=== PATIENT | female | born 1945 | race Caucasian/White ===

== ENCOUNTER 2018-12-28 17:18 | Emergency (ER) | payer MEDICARE, OTHER ==
[~2018-12-28] VITALS: Ht 152.4 cm; Wt 72.7 kg
[2018-12-28] MEDS ORDERED: FLUORESCEIN (FLUOR-I-STRIPS) 1 MG STRP ONE (17:24)
[2018-12-28] MEDS ORDERED: TETRACAINE 0.5% OPHTH SOLN 4 ML BTL (SINGLE DOSE ONLY) ONE (17:24)
[2018-12-28] MEDS ORDERED: TETANUS,DIPTH,PERTUSS P/F (BOOSTRIX) 0.5 ML VIAL IM ONE (17:45)
[2018-12-28] MEDS ORDERED: NS IV 1000 ML 1,000 ML IV SCH (17:45)
[2018-12-28] MEDS ORDERED: TETRACAINE 0.5% OPHTH SOLN 4 ML BTL (SINGLE DOSE ONLY) OU ONE (17:45)
[2018-12-28] MEDS ORDERED: FLUORESCEIN (FLUOR-I-STRIPS) 1 MG STRP OU ONE (17:45)
[2018-12-28] MEDS ORDERED: IBUPROFEN 800 MG (MOTRIN) TAB PO ONE (17:45)
[2018-12-28] MEDS ORDERED: ACETAMINOPHEN 325 MG TABLET PO ONE (17:45)
[2018-12-28] MEDS ORDERED: NS IV 1000 ML 1,000 ML ONE (17:50)
--- NOTE | 2018-12-28 18:15 | ED EENT ---
History of Present Illness General Chief Complaint: Eye Problems Stated Complaint: CHEMICAL IN EYE Nursing Triage Note: Patient brought in via EMS with c/o left eye pain. Patient reports that she accidently put teeth whitening drops in her eye instead of her eye drops. She reports that she immediatly flushed her eye out with tap water for 20 minutes. She states that her eye feels like it is burning and might pop out of her head. History of Present Illness Date Seen by Provider: Dec 28, 2018 Time Seen by Provider: 17:00 Initial Comments The patient is a 73-year-old female who lives in an assisted living apartment. She presents with concern for acute onset of left eye discomfort with onset after she mistook her homeopathic tooth whitening drops for eye drops and sprayed a good quantity of tooth whitening liquid into her left eye. She felt an immediate burning sensation and irrigated her eye under tap water for about 20 minutes. Eye was still burning and was mildly swollen so she decided to call the ambulance to take her to the hospital for evaluation. Patient is able to see out of her left eye without much difficulty although things are a little blurry. No other injury during the episode. She does not wear contact lenses but does wear corrective eyeglasses. Tetanus is not up-to-date. Allergies and Home Medications Allergies Coded Allergies: prochlorperazine (Unverified Adverse Reaction, Severe, Anaphylaxis, 12/28/18) lactose (Unverified Adverse Reaction, Mild, abd pain, 12/28/18) metronidazole (Unverified Adverse Reaction, Mild, Rash, 12/28/18) poison jose a extract (Unverified Adverse Reaction, Mild, rash, 12/28/18) sulfadiazine (Unverified Adverse Reaction, Mild, rash, 12/28/18) celecoxib (Unverified Adverse Reaction, Unknown, rash, 12/28/18) codeine (Unverified Adverse Reaction, Unknown, Rash, 12/28/18) Home Medications Acetaminophen 325 Mg Capsule, 975 MG PO Q8H Prescribed by: LOURDES HASSAN on 12/28/181822 Erythromycin Base 1 Gm Oint...g., 0 OP Q6H 1/2 inch Prescribed by: LOURDES HASSAN on 12/28/181822 Ibuprofen 800 Mg Tablet, 800 MG PO Q8H PRN for PAIN Prescribed by: LOURDES HASSAN on 12/28/18 1823 Patient Home Medication List Home Medication List Reviewed: Yes Review of Systems Review of Systems Constitutional: see HPI All Other Systems Reviewed Negative Unless Noted: Yes (Negative excepted noted.) Past Aikrjln-Fhjcav-Qegpap Hx Past Med/Social Hx: Reviewed Nursing Past Med/Soc Hx Patient Social History Recent Foreign Travel: No Contact w/Someone Who Travel: No Recent Infectious Disease Expo: No Physical Abuse: No Sexual Abuse: No Mistreated: No Fear: No Family Medical History Reviewed Nursing Family Hx Physical Exam Vital Signs Vital Signs - First Documented 12/28/18 17:19 Temp 36.8 Pulse 100 Resp 16 B/P (MAP) 191/87 (121) O2 Delivery Room Air Height, Weight, BMI Height: '" Weight: lbs. oz. kg; 31.00 BMI Method: General Appearance: no apparent distress This is an elderly female appearing nontoxic and in no acute distress. Head is normocephalic and atraumatic. Neck is supple and nontender. Oropharynx is moist. Examination of the eyes reveals normal ocular examination OD and generalized modest conjunctival and scleral injection OS with obvious area of shallow circular ulceration over the most anterior aspect of the cornea. Stained examination with fluorescein allows this area to be better seen and also reveals more generalized fluorescein uptake suggestive of abrasion/ulceration. No Beba sign. Lungs clear to auscultation in all stations. There is a normal S1 and S2 without rubs or gallops and capillary refill is appropriate, less than 2 seconds globally. Abdomen is soft, nontender and nondistended. Skin is warm and dry without cyanosis, clubbing or edema. Psychiatrically, the patient demonstrates appropriate mood and affect and is alert. Progress/Results/Core Measures Results/Orders My Orders Orders - LOURDES HASSAN MD Tetracaine 0.5% Ophth Isis Sdv (Tetracai (12/28/18 17:24) Fluorescein Strips (Iwcib-M-Aaucdv) (12/28/18 17:24) Ibuprofen Tablet (Motrin Tablet) (12/28/18 17:45) Acetaminophen Tablet/Caplet (Tylenol T (12/28/18 17:45) Dipht,Pertuss(Acell),Tet Adult (Boostrix (12/28/18 17:45) Tetracaine 0.5% Ophth Isis Sdv (Tetracai (12/28/18 17:45) Fluorescein Strips (Rwsds-F-Hdabyk) (12/28/18 17:45) Ns Iv 1000 Ml (Sodium Chloride 0.9%) (12/28/18 17:45) Ns Iv 1000 Ml (Sodium Chloride 0.9%) (12/28/18 17:50) Tramadol Tablet (Ultram Tablet) (12/28/18 18:45) Medications Given in ED Current Medications Medications Dose Ordered Sig/Malcolm Route Start Time Stop Time Status Last Admin Dose Admin Fluorescein Sodium 1 mg ONCE ONCE OU 12/28/18 17:45 12/28/18 17:51 DC 12/28/18 17:35 1 MG Tetracaine HCl 4 ml ONCE ONCE OU 12/28/18 17:45 12/28/18 17:51 DC 12/28/18 17:30 4 ML Vital Signs/I&O 12/28/18 17:19 Temp 36.8 Pulse 100 Resp 16 B/P (MAP) 191/87 (121) O2 Delivery Room Air Blood Pressure Mean: 121 POS Progress Progress Note : Time: 18:15 Progress Note Contact made with the [facility] center. Ingredients of the patient's homeopathic eyedrops reviewed and include alcohol and menthol as well as a variety of homeopathic agents. [place] [facility] advises that the drops would primarily have been irritating and that the eye should be copiously irrigated to a pH of 7 and that following this the patient may be placed on ocular antibiotics and directed to follow up very closely with ophthalmology in the clinic in the next 1-2 days. We will update tetanus as well. We will proceed with copious irrigation at this time. Update 1842: Patient is resting comfortably in no acute distress upon reassessment. We have copiously irrigated her eye x30 minutes with saline and she reports that it is much less painful than it was on arrival. She feels comfortable going home. She is to follow-up with the conservation officer in the office in the next 1-2 days and understands that if she feels worse is that of better that she should return immediately to the emergency department for reevaluation. All questions are answered. Departure Impression Primary Impression: Corneal abrasion Qualified Codes: S05.02XA - Injury of conjunctiva and corneal abrasion without foreign body, left eye, initial encounter Additional Impression: Corneal ulcer of left eye Disposition: 01 HOME, SELF-CARE Condition: Improved Departure-Patient Inst. Patient Instructions: Corneal Abrasion (DC), Corneal Ulcer (DC) Add. Discharge Instructions: Please follow-up with Dr. Dotson of ophthalmology in [place]. You may reach his office at [phone]. Please call him tomorrow morning to obtain a close follow-up appointment, ideally within the next 1-2 days. In the meantime, use the medication as prescribed for discomfort and use the antibiotic eye ointment daily as prescribed. Return to the emergency department right away with worsen symptoms or other new concerns. Scripts Tramadol HCl (Ultram) 50 Mg Tablet 50 MG PO Q6H for Breakthrough Pain, #7 TAB Prov: LOURDES HASSAN MD 12/28/18 Erythromycin Base (Erythromycin Opthalmic Ointment) 1 Gm Oint...g. 0 OP Q6H for 7 Days, #1 TUBE 1/2 inch Prov: LOURDES HASSAN MD 12/28/18 Acetaminophen (Tylenol) 325 Mg Capsule 975 MG PO Q8H for 5 Days, #50 CAP Prov: LOURDES HASSAN MD 12/28/18 Ibuprofen (Ibuprofen) 800 Mg Tablet 800 MG PO Q8H PRN for PAIN, #30 TAB 0 Refills Prov: LOURDES HASSAN MD 12/28/18 LOURDES HASSAN MD Dec 28, 2018 18:15 POS
[2018-12-28] MEDS ORDERED: IBUP-1780 PO (18:23)
[2018-12-28] MEDS ORDERED: ACET325C5 PO (18:23)
[2018-12-28] MEDS ORDERED: ERYT1OIN6 OP (18:23)
[2018-12-28] MEDS ORDERED: TRAM-42 PO (18:45)
--- NOTE | 2018-12-28 19:00 | NUR ---
Patient unable to see visual acutity chart with her left eye. States that she isn't even able to see this RN standing down by the chart. Dr. Houser notified at this time.
[2018-12-28] MEDS ORDERED: PRED5DRO24 OP (20:23)
[2018-12-28] MEDS ORDERED: predniSONE 20 MG TAB PO ONE (20:30)
[2018-12-28 20:39] VITALS: BP 191/87
== END 2018-12-28 20:39 | disposition home or self-care (01) ==
LOC: ER FS 17:23
DX: S05.02XA Injury of conjunctiva and corneal abrasion without foreign body, left eye, initial encounter (principal); H16.002 Unspecified corneal ulcer, left eye; T54.91XA Toxic effect of unspecified corrosive substance, accidental (unintentional), initial encounter; Z88.8 Allergy status to other drugs, medicaments and biological substances; Z88.5 Allergy status to narcotic agent; Z88.2 Allergy status to sulfonamides; Z88.6 Allergy status to analgesic agent
CPT/HCPCS: 90715; 99283

== ENCOUNTER → 2019-11-02 | Outpatient (CLI) | payer MEDICARE ==
[~2019-11-02] MED LIST: ACET325C7 PO; ERYT1OIN6 OP; IBUP-1780 PO; PRED5DRO24 OP; TRAM-42 PO
--- NOTE | 2019-11-02 16:34 | Diagnostic Imaging Report ---
INDICATION: Generalized abdominal pain with nausea and diarrhea. TIME OF EXAM: 3:08 p.m. FINDINGS: Supine radiograph of the abdomen does show moderate gaseous distention to the colon, nonspecific. No significant small bowel distention is seen. No wall thickening or pneumatosis is identified. There are surgical clips in the right upper quadrant. No pathologic calcification is seen. IMPRESSION: There is moderate colonic distention, nonspecific. Progress films could be obtained for follow-up. Dictated by: Dictated on workstation # [id number]
== END ==
LOC: RAD FS 14:50
PROVIDERS: ATTEND Family Medicine
DX: K59.00 Constipation, unspecified (principal); K63.89 Other specified diseases of intestine; R19.7 Diarrhea, unspecified; R10.9 Unspecified abdominal pain
CPT/HCPCS: 74018

== ENCOUNTER → 2020-07-17 | Outpatient (CLI) | payer MEDICARE | LOC: CARD 12:50 | PROVIDERS: ATTEND Family Medicine | DX: I08.0 Rheumatic disorders of both mitral and aortic valves (principal); I27.20 Pulmonary hypertension, unspecified | CPT/HCPCS: 93306 ==

== ENCOUNTER 2020-10-10 08:49 | Emergency (ER) | payer MEDICARE ==
[~2020-10-10] VITALS: Ht 152.4 cm; Wt 70.4 kg
--- NOTE | 2020-10-10 09:01 | ED General ---
General Stated Complaint: HTN History of Present Illness Date Seen by Provider: Oct 10, 2020 Time Seen by Provider: 09:01 Initial Comments 75-year-old female presents with elevated blood pressure, headache. Patient reports that she was discharged 4 days ago after a stay in hospital for elevated blood pressure. Patient reports that whenever her blood pressure is elevated she also gets a headache. Patient also however has a history of migraines. Patient also has a history of anxiety. Patient takes clonidine and Ativan daily with the clonidine 3 times a day and Ativan 4 times a day. Patient is not having chest pain, shortness of breath, nausea, vomiting or other systemic complaints. Patient had a inch of Nitropaste placed by EMS to help with her blood pressure in route. They report her blood pressure was 220 systolic. Allergies and Home Medications Allergies Coded Allergies: prochlorperazine (Unverified Adverse Reaction, Severe, Anaphylaxis, 12/28/18) lactose (Unverified Adverse Reaction, Mild, abd pain, 12/28/18) metronidazole (Unverified Adverse Reaction, Mild, Rash, 12/28/18) poison jose a extract (Unverified Adverse Reaction, Mild, rash, 12/28/18) sulfadiazine (Unverified Adverse Reaction, Mild, rash, 12/28/18) celecoxib (Unverified Adverse Reaction, Unknown, rash, 12/28/18) codeine (Unverified Adverse Reaction, Unknown, Rash, 12/28/18) Home Medications Acetaminophen 325 Mg Capsule, 975 MG PO Q8H Prescribed by: LOURDES HASSAN on 12/28/181822 Erythromycin Base 1 Gm Oint...g., 0 OP Q6H 1/2 inch Prescribed by: LOURDES HASSAN on 12/28/181822 Ibuprofen 800 Mg Tablet, 800 MG PO Q8H PRN for PAIN Prescribed by: LOURDES HASSAN on 12/28/181822 Prednisolone Acetate/Pf 5 Ml Drops.susp, 5 ML OP q2 hours Prescribed by: LOURDES HASSAN on 12/28/182022 Tramadol HCl 50 Mg Tablet, 50 MG PO Q6H Prescribed by: LOURDES HASSAN on 12/28/18 1845 Patient Home Medication List Home Medication List Reviewed: Yes Review of Systems Review of Systems Constitutional: No chills, No fever EENTM: no symptoms reported Respiratory: No cough, No short of breath Cardiovascular: No chest pain, No palpitations, No syncope Gastrointestinal: No abdominal pain, No nausea, No vomiting Musculoskeletal: no symptoms reported Skin: no symptoms reported Psychiatric/Neurological: Headache Hematologic/Lymphatic: No Symptoms Reported Immunological/Allergic: no symptoms reported Past Abvofyh-Jfgljr-Nzphjb Hx Immunizations Up To Date Tetanus Booster (TDap): Unknown Seasonal Allergies Seasonal Allergies: Yes Past Medical History Surgeries: Yes (R Total Knee) Appendectomy, Cardiac, Hysterectomy, Oophorectomy, Orthopedic, Tonsillectomy, Tubal Ligation Respiratory: No Cardiac: Yes High Cholesterol, Hypertension, Valvular Heart Disease Neurological: Yes 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 oz. 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 Norm as Tested Skin: Normal Color, Warm/Dry Progress/Results/Core Measures Suspected Sepsis SIRS Temperature: Pulse: Respiratory Rate: Laboratory Tests 10/10/20 09:21: White Blood Count 5.9 Blood Pressure / Mean: Laboratory Tests 10/10/20 09:21: Creatinine 1.19, Platelet Count 217, Total Bilirubin 0.3 Results/Orders Lab Results Laboratory Tests Test 10/10/20 09:20 10/10/20 09:21 Range/Units Urine Color YELLOW Urine Clarity CLEAR Urine pH 7.5 5-9 Urine Specific [place] 1.010 L 1.016-1.022 Urine Protein NEGATIVE NEGATIVE Urine Glucose (UA) NEGATIVE NEGATIVE Urine Ketones NEGATIVE NEGATIVE Urine Nitrite NEGATIVE NEGATIVE Urine Bilirubin NEGATIVE NEGATIVE Urine Urobilinogen 0.2 < = 1.0 MG/DL Urine Leukocyte Esterase NEGATIVE NEGATIVE Urine RBC (Auto) NEGATIVE NEGATIVE Urine RBC NONE /HPF Urine WBC 0-2 /HPF Urine Squamous Epithelial Cells 0-2 /HPF Urine Crystals NONE /LPF Urine Bacteria NEGATIVE /HPF Urine Casts NONE /LPF Urine Mucus NEGATIVE /LPF White Blood Count 5.9 4.3-11.0 10^3/uL Red Blood Count 4.36 3.80-5.11 10^6/uL Hemoglobin 13.6 11.5-16.0 g/dL Hematocrit 40 35-52 % Mean Corpuscular Volume 91 80-99 fL Mean Corpuscular Hemoglobin 31 25-34 pg Mean Corpuscular Hemoglobin Concent 34 32-36 g/dL Red Cell Distribution Width 13.4 10.0-14.5 % Platelet Count 217 130-400 10^3/uL Mean Platelet Volume 12.5 H 9.0-12.2 fL Immature Granulocyte % (Auto) 0 % Neutrophils (%) (Auto) 48 42-75 % Lymphocytes (%) (Auto) 37 12-44 % Monocytes (%) (Auto) 8 0-12 % Eosinophils (%) (Auto) 6 0-10 % Basophils (%) (Auto) 1 0-10 % Neutrophils # (Auto) 2.8 1.8-7.8 X 10^3 Lymphocytes # (Auto) 2.2 1.0-4.0 X 10^3 Monocytes # (Auto) 0.5 0.0-1.0 X 10^3 Eosinophils # (Auto) 0.4 H 0.0-0.3 10^3/uL Basophils # (Auto) 0.1 0.0-0.1 10^3/uL Immature Granulocyte # (Auto) 0.0 0.0-0.1 10^3/uL Sodium Level 131 L 135-145 MMOL/L Potassium Level 4.2 3.6-5.0 MMOL/L Chloride Level 95 L 98-107 MMOL/L Carbon Dioxide Level 27 21-32 MMOL/L Anion Gap 9 5-14 MMOL/L Blood Urea Nitrogen 14 7-18 MG/DL Creatinine 1.19 0.60-1.30 MG/DL Estimat Glomerular Filtration Rate 44 BUN/Creatinine Ratio 12 Glucose Level 103 70-105 MG/DL Calcium Level 10.3 H 8.5-10.1 MG/DL Corrected Calcium 10.4 H 8.5-10.1 MG/DL Magnesium Level 1.8 1.6-2.4 MG/DL Total Bilirubin 0.3 0.1-1.0 MG/DL Aspartate Amino Transf (AST/SGOT) 25 5-34 U/L Alanine Aminotransferase (ALT/SGPT) 10 0-55 U/L Alkaline Phosphatase 82 40-136 U/L Total Protein 6.8 6.4-8.2 GM/DL Albumin 3.9 3.2-4.5 GM/DL My Orders Orders - GARTH LARA DO Cbc With Automated Diff (10/10/20 09:01) Comprehensive Metabolic Panel (10/10/20 09:01) Magnesium (10/10/20 09:01) Ua Culture If Indicated (10/10/20 09:01) Ekg Tracing (10/10/20 09:01) Lorazepam Tablet (Ativan Tablet) (10/10/20 09:13) Ketorolac Injection (Toradol Injection) (10/10/20 09:22) Vital Signs/I&O 10/10/20 08:49 Temp 36.4 Pulse 77 Resp 20 B/P (MAP) 220/94 (136) Pulse Ox 99 O2 Delivery Room Air Capillary Refill : Progress Note : Time: 10:48 Progress Note Patient's blood pressure improved throughout her stay. Patient Nitropaste was removed shortly after her arrival. Blood pressure continued to improve with her last reading a systolic of 129. Patient nausea and headache improved after the removal of the Nitropaste. Patient was stable and discharged home. ECG Initial ECG Impression Date: Oct 10, 2020 Initial ECG Impression Time: 09:31 Initial ECG Rhythm: Normal Sinus Initial ECG Intervals: Normal Initial ECG Impression: Normal Comment normal ekg Departure Impression Primary Impression: High blood pressure Qualified Codes: I10 - Essential (primary) hypertension Disposition: 01 HOME, SELF-CARE Condition: Stable Departure-Patient Inst. Referrals: ROGELIO PATEL MD (PCP/Family) Primary Care Physician Patient Instructions: High Blood Pressure in Adults Add. Discharge Instructions: Please limit blood pressure checks to twice daily at most. Take your home blood pressure medication as directed, follow-up with your primary care provider in approximately 7 to 10 days for medication review and blood pressure reading review. GARTH LARA DO Oct 10, 2020 09:01
[2020-10-10] MEDS ORDERED: LORazepam 0.5 MG (ATIVAN) TABLET PO STA (09:13)
[2020-10-10] MEDS ORDERED: KETOROLAC 30 MG/ML VIAL IVP STA (09:22)
[2020-10-10 09:29] LABS: BILIRUBIN,URINE NEGATIVE (NEGATIVE); CLARITY,URINE CLEAR; COLOR,URINE YELLOW; GLUCOSE, URINE (UA) NEGATIVE (NEGATIVE); KETONES,URINE NEGATIVE (NEGATIVE); LEUKOCYTE ESTERASE ,URINE NEGATIVE (NEGATIVE); NITRITE,URINE NEGATIVE (NEGATIVE); PH,URINE 7.5 (5-9); PROTEIN,URINE NEGATIVE (NEGATIVE)
[2020-10-10 09:55] LABS: BACTERIA,URINE NEGATIVE /HPF; WBC,URINE 0-2 /HPF
[2020-10-10 09:56] LABS: SQUAMOUS EPITHELIAL CELL,UR 0-2 /HPF
[2020-10-10 10:00] LABS: HEMATOCRIT 40 % (35-52); HEMOGLOBIN 13.6 g/dL (11.5-16.0); MEAN CORPUSCULAR HEMOGLOBIN 31 pg (25-34); MEAN CORPUSCULAR HGB CONC 34 g/dL (32-36); MEAN CORPUSCULAR VOLUME 91 fL (80-99); WHITE BLOOD COUNT 5.9 10^3/uL (4.3-11.0)
[2020-10-10 10:01] LABS: BASOPHILS % (AUTO) 1 % (0-10); EOSINOPHILS % (AUTO) 6 % (0-10); LYMPHOCYTES % (AUTO) 37 % (12-44); MEAN PLATELET VOLUME 12.5 fL (9.0-12.2); MONOCYTES % (AUTO) 8 % (0-12); NEUTROPHILS % (AUTO) 48 % (42-75); PLATELET COUNT 217 10^3/uL (130-400)
[2020-10-10 10:02] LABS: BASOPHILS # (AUTO) 0.1 10^3/uL (0.0-0.1); EOSINOPHILS # (AUTO) 0.4 10^3/uL (0.0-0.3); LYMPHOCYTES # (AUTO) 2.2 X 10^3 (1.0-4.0); MONOCYTES # (AUTO) 0.5 X 10^3 (0.0-1.0); NEUTROPHILS # (AUTO) 2.8 X 10^3 (1.8-7.8)
[2020-10-10 10:05] LABS: CREATININE SERUM 1.19 MG/DL (0.60-1.30); POTASSIUM 4.2 MMOL/L (3.6-5.0)
[2020-10-10 10:06] LABS: ALBUMIN 3.9 GM/DL (3.2-4.5); BILIRUBIN,TOTAL 0.3 MG/DL (0.1-1.0); CALCIUM 10.3 MG/DL (8.5-10.1); MAGNESIUM 1.8 MG/DL (1.6-2.4); TOTAL PROTEIN 6.8 GM/DL (6.4-8.2)
[2020-10-10 10:58] VITALS: BP 126/70
== END 2020-10-10 10:58 | disposition home or self-care (01) ==
LOC: EDUNIT# 08:53 → ER FS 08:55
DX: I10 Essential (primary) hypertension (principal); Z86.73 Personal history of transient ischemic attack (TIA), and cerebral infarction without residual deficits; Z79.52 Long term (current) use of systemic steroids
CPT/HCPCS: 36415; 80053; 81000; 83735; 85025; 93005

== ENCOUNTER → 2020-12-10 | Outpatient (CLI) | payer MEDICARE ==
[~2020-12-10] MED LIST changes: +GADOTERATE 0.5 MMOL/ML (CLARISCAN) 15 ML VIAL IV ONE
--- NOTE | 2020-12-10 14:22 | Diagnostic Imaging Report ---
PROCEDURE: MR imaging of the brain with and without contrast. TECHNIQUE: Multiplanar, multisequence MR imaging of the brain was performed with and without contrast. INDICATION: Left-sided hearing loss. Speech difficulties. COMPARISON: None. FINDINGS: No acute ischemia, mass, or hemorrhage. Small amount of focal T2 hyperintense signal is seen in the periventricular and juxtacortical white matter. Faint enhancement is seen involving a T2 focus in the right frontal lobe. The ventricles and cortical sulci are mildly prominent. The basilar cisterns are symmetric and unremarkable. There is flattening of the pituitary. The bilateral seventh and eighth cranial nerves have a normal course and caliber. No abnormal enhancement is seen. No CPA mass. The bilateral internal auditory canals are symmetric and unremarkable. The inner ear structures have a normal appearance. The bilateral Meckel's caves and cavernous sinuses have a normal appearance. The brainstem and posterior fossa are unremarkable. Mild mucosal thickening is seen in the bilateral sphenoid sinuses. The mastoid air cells demonstrate normal signal characteristics. The globes and orbits are symmetric and unremarkable. The scalp and calvarium have a normal appearance. IMPRESSION: 1. Focal areas of T2 hyperintense signal in the periventricular and juxtacortical white matter, primarily in the right frontal and parietal lobes. There is associated faint enhancement involving the lesion in the juxtacortical white matter of the lateral right frontal lobe, suggestive of demyelination. Recommend correlation with patient history and symptoms and if indicated, CSF analysis to further evaluate. 2. No acute ischemia or hemorrhage. No intracranial mass or midline shift. 3. Unremarkable appearance of the seventh and eighth cranial nerves. No evidence of CPA mass. 4. Mucosal thickening in the bilateral sphenoid sinuses. Dictated by: Dictated on workstation # [id number]
== END ==
LOC: RAD 13:15
PROVIDERS: ATTEND Otolaryngology Otolaryngology/Facial Plastic Surgery
DX: H91.92 Unspecified hearing loss, left ear (principal); R47.9 Unspecified speech disturbances; J34.89 Other specified disorders of nose and nasal sinuses
CPT/HCPCS: 70553

== ENCOUNTER → 2021-01-02 | Outpatient (CLI) | payer MEDICARE ==
[~2021-01-02] MED LIST changes: -GADOTERATE 0.5 MMOL/ML (CLARISCAN) 15 ML VIAL IV ONE
--- NOTE | 2021-01-02 10:44 | Diagnostic Imaging Report ---
EXAMINATION: CT chest, abdomen and pelvis without intravenous contrast. TECHNIQUE: Multiple contiguous axial images were obtained through the chest, abdomen and pelvis without intravenous contrast. All CT scans use one or more of the following dose optimizing techniques: automated exposure control, MA and/or KvP adjustment based on patient size and exam type or iterative reconstruction. HISTORY: ANTERIOR CERVICAL LYMPHADENOPATHY,NIGHT SWEATS COMPARISON: None available. FINDINGS: Thyroid: The thyroid is normal. Mediastinum: Heart size is normal without significant pericardial effusion. Calcifications of the aorta and coronary vessels. Thoracic aorta is normal in caliber. No suspicious lymphadenopathy. Lungs and airways: There are patchy groundglass opacities within the right and left upper lobes. No pleural effusion or pneumothorax. The airways are normal. Solid organs: The liver is normal. The gallbladder is surgically absent. Mild dilatation of the common bile duct and left intrahepatic ducts which may be secondary to reservoir effect from prior cholecystectomy. Pancreas is normal. Spleen is normal. Adrenal glands are normal. The kidneys are normal without hydronephrosis. Bowel: The stomach and small bowel are normal without obstruction. There is scattered colonic diverticula. No findings of acute appendicitis. Peritoneum: There is no intraperitoneal free fluid or free air. No suspicious lymphadenopathy. Vasculature: Calcification of the aorta without aneurysm. Musculoskeletal: Degenerative changes of the spine without suspicious osseous lesion or compression fracture. There is a left L5 pars defect. Grade 1 anterolisthesis of L5 on S1. Pelvis: The uterus is surgically absent. No adnexal mass. The urinary bladder is normal. IMPRESSION: 1. Patchy groundglass opacities within the upper lobes concerning for atypical pneumonia. Consider follow-up CT chest in one month to document resolution. 2. No other acute abnormality in the chest, abdomen, or pelvis. Dictated by: Dictated on workstation # [id number]
== END ==
LOC: RAD FS 09:53
PROVIDERS: ATTEND Pediatrics
DX: R59.0 Localized enlarged lymph nodes (principal); R61 Generalized hyperhidrosis; R63.4 Abnormal weight loss
CPT/HCPCS: 71250; 74176

== ENCOUNTER → 2021-03-27 | Outpatient (CLI) | payer MEDICARE ==
--- NOTE | 2021-03-27 15:45 | Diagnostic Imaging Report ---
INDICATION: Abdominal pain COMPARISON: 11/02/2019 FINDINGS: 2 frontal radiographic views of the abdomen were obtained and nondistended loops of small bowel. There is no large collection of free peritoneal air. Large amount of air and stool are seen scattered throughout the colon. No unexpected extraosseous calcifications or radiopaque foreign bodies are seen. Bony structures show no gross acute abnormalities. IMPRESSION: 1. Nonobstructed small bowel gas pattern. 2. Large amount of colonic air and stool. Please correlate for constipation Dictated by: Dictated on workstation # [id number]
== END ==
LOC: LAB FS 15:12
PROVIDERS: ATTEND Family Medicine
DX: R10.9 Unspecified abdominal pain (principal)
CPT/HCPCS: 74018

== ENCOUNTER → 2021-05-07 | Outpatient (CLI) | payer MEDICARE ==
[~2021-05-07] VITALS: Ht 152.4 cm; Wt 92.5 kg
[~2021-05-07] MED LIST changes: +ALPR0.25 PO; +AMLO-251 PO; +ASPI81TA16 PO; +ATOR10TA PO; +CITA10TA12 PO; +CLN.1T PO; +CYAN500T44 PO; +DOCU-143 PO; +DOCU283E RC; +FURO-125 PO; +HYDR-3817 PO; +LABE100T6 PO; +LEVO50CA4 PO; +LEVO75CA5 PO; +LIFI1DRO OP; +LINA290C PO; +LORA10CA PO; +LOSA50TA2 PO; +MEMA10TA2 PO; +OLAN10TA3 PO; +OMEP20TA33 PO; +ONDA-105 PO; +TPR25T PO; +TRZ50T PO
== END | disposition home or self-care (01) ==
LOC: PREOP 10:45
PROVIDERS: ATTEND Surgery
DX: Z01.818 Encounter for other preprocedural examination (principal)

== ENCOUNTER 2021-05-08 09:32 | Day surgery (SDC) | payer MEDICARE ==
[~2021-05-08] VITALS: Ht 152.4 cm; Wt 92.5 kg
[2021-05-08] VITALS (12 sets, daily range): BP systolic 104–199; BP diastolic 80–105
[~2021-05-08 09:32] MED LIST changes: -HYDR-3817 PO
[2021-05-08] MEDS ORDERED: LACTATED RINGERS 1,000 ML IV PRN (09:45)
[2021-05-08] MEDS ORDERED: ceFAZolin 2 GM IV Premixed 50 ML IV ONE (09:45)
[2021-05-08] MEDS ORDERED: HYDR-3817 PO (09:50)
--- NOTE | 2021-05-08 09:51 | Discharge Inst-Surgical ---
D/C Lap Instructions-KIDO Reconcile Patient Problems Problems Reviewed?: Yes New, Converted, or Re-Newed RX: RX on Chart Follow Up Appt in 2 weeks Activity as tolerated No driving for 24 hours No driving while on pain medications Incentive Spirometry use every 2 hours while awake Regular Diet Symptoms to Report: Fever over 101 degree F, Nausea/Vomiting Infection Signs and Symptoms to report: Increased redness, Foul odor of wound, Increased drainage Bathing instructions: May shower Operative Area Clean/Dry; Keep incision clean/dry If any problems/questions: Contact your physician or go to Emergency Room SITA TORRES APRN May 08, 2021 09:51
--- NOTE | 2021-05-08 09:52 | Progress Note-Pre Operative ---
Pre-Operative Progress Note H&P Reviewed The H&P was reviewed, patient examined and no changes noted. Date Seen by Provider: May 08, 2021 Time Seen by Provider: 09:50 Date H&P Reviewed: May 08, 2021 Time H&P Reviewed: 09:45 Pre-Operative Diagnosis: Symptomatic ventral abdominal incisional hernia SITA TORRES APRN May 08, 2021 09:52
[2021-05-08] MEDS ORDERED: HYDROcodone/APAP 5 MG/325 MG (LORTAB) TAB PO ONE (10:00)
[2021-05-08] MEDS ORDERED: ACETAMINOPHEN 325 MG TABLET PO PRN (10:00)
[2021-05-08] MEDS ORDERED: morphine INJ 10 MG/ML 1ML (SYR OR VIAL) IVP PRN (10:00)
[2021-05-08] MEDS ORDERED: ONDANSETRON 4 MG/2 ML (SDV) Z0FRAN IVP PRN ×2 (10:00→13:15)
[2021-05-08 10:17] LABS: BASOPHILS # (AUTO) 0.1 10^3/uL (0.0-0.1); BASOPHILS % (AUTO) 1 % (0-10); EOSINOPHILS # (AUTO) 0.3 10^3/uL (0.0-0.3); EOSINOPHILS % (AUTO) 5 % (0-10); HEMATOCRIT 40 % (35-52); HEMOGLOBIN 13.3 g/dL (11.5-16.0); LYMPHOCYTES # (AUTO) 1.5 10^3/uL (1.0-4.0); LYMPHOCYTES % (AUTO) 24 % (12-44); MEAN CORPUSCULAR HEMOGLOBIN 31 pg (25-34); MEAN CORPUSCULAR HGB CONC 34 g/dL (32-36); MEAN CORPUSCULAR VOLUME 93 fL (80-99); MEAN PLATELET VOLUME 12.5 fL (9.0-12.2); MONOCYTES # (AUTO) 0.3 10^3/uL (0.0-1.0); MONOCYTES % (AUTO) 5 % (0-12); NEUTROPHILS # (AUTO) 4.1 10^3/uL (1.8-7.8); NEUTROPHILS % (AUTO) 65 % (42-75); PLATELET COUNT 198 10^3/uL (130-400); WHITE BLOOD COUNT 6.3 10^3/uL (4.3-11.0)
[2021-05-08] MEDS ORDERED: LIDOCAINE/EPI 2% 1:100,00 (XYLOCAINE) 20 ML VIAL ONE (10:32)
[2021-05-08] MEDS ORDERED: proPOfol 200 MG/20 ML (DIPRIVAN) VIAL IV ONE (11:04)
[2021-05-08] MEDS ORDERED: GLYCOPYRROLATE 0.2 MG/ML (ROBINUL) 2 ML VIAL ONE (11:04)
[2021-05-08] MEDS ORDERED: NEOSTIGMINE 3 MG/3 ML VIAL ONE (11:04)
[2021-05-08] MEDS ORDERED: ROCURONIUM 10 MG/ML 5 ML SYRINGE IV ONE (11:04)
[2021-05-08] MEDS ORDERED: ONDANSETRON 4 MG/2 ML (SDV) Z0FRAN ONE (11:04)
[2021-05-08] MEDS ORDERED: fentaNYL INJ 100 MCG/2 ML AMP ONE (11:04)
[2021-05-08] MEDS ORDERED: LIDOCAINE PF 2% 5 ML (XYLOCAINE) VIAL ONE (11:04)
--- NOTE | 2021-05-08 12:49 | Progress Note-Post Operative ---
Post-Operative Progess Note Surgeon (s)/Automatic Lathe Operator (s) Surgeon CARLOS HARDEN MD Automatic Lathe Operator: virginia trejo CALCULATOR OPERATOR Pre-Operative Diagnosis Symptomatic ventral abdominal incisional hernia Post-Operative Diagnosis sx incarcerated incisional hernia Procedure & Operative Findings Date of Procedure 05/08/21 Procedure Performed/Findings open incarcerated ventral abdominal incisional hernia repair with mesh. Anesthesia Type get Estimated Blood Loss Estimated blood loss (mL): minimal Specimens/Packing Specimens Removed hernia sac CARLOS HARDEN MD May 08, 2021 12:49
--- NOTE | 2021-05-08 13:02 | Anesthesia-General Post-Op ---
General Patient Condition Mental Status/LOC: Same as Preop Cardiovascular: Satisfactory Nausea/Vomiting: Absent Respiratory: Satisfactory Pain: Controlled Complications: Absent Post Op Complications Complications None Follow Up Care/Instructions Patient Instructions None needed. Anesthesia/Patient Condition Patient Condition Patient is doing well, no complaints, stable vital signs, no apparent adverse anesthesia problems. No complications reported per nursing. LISA TAMAYO CRNA May 08, 2021 13:02
[2021-05-08] MEDS ORDERED: MEPERIDINE (DEMEROL) INJ 50 MG/ML IVP ONE (13:15)
[2021-05-08] MEDS ORDERED: fentaNYL INJ 100 MCG/2 ML AMP IVP ONE (13:15)
[2021-05-08] MEDS ORDERED: RT-ALBUTEROL SULF 2.5 MG/3 ML PRE-MIX VIAL ONE (13:43)
[2021-05-08] MEDS ORDERED: HYDROcodone/APAP 5 MG/325 MG (LORTAB) TAB ONE (14:12)
--- NOTE | 2021-05-08 19:43 | OPERATIVE REPORT ---
DATE OF SERVICE: 05/08/2021 ATTENDING PRIMARY CARE PHYSICIAN: Dr. Bart Duval. PREOPERATIVE DIAGNOSIS: Symptomatic incarcerated ventral abdominal incisional hernia. POSTOPERATIVE DIAGNOSIS: Symptomatic incarcerated ventral abdominal incisional hernia with omentum within the hernia sac. PROCEDURE: Open incarcerated ventral abdominal incisional hernia repair with mesh. SURGEON: Carlos Harden MD HOTEL BAGGAGE HANDLER: Tom Galeas APRN ANESTHESIA: General endotracheal. ESTIMATED BLOOD LOSS: Minimal. FINDINGS: Incarcerated omentum. No strangulation. DISPOSITION: The patient tolerated the procedure well. INDICATIONS: The patient is a 76-year-old female who reports she was doing an activity and felt a sudden onset of pain in the epigastric region while doing an activity and then felt a palpable knot. She has been seen by her physician. An incarcerated hernia was identified. The pain was significant however, she was able to eat and have normal bowel function and was not having any fever, no chills. She was seen in the office and again found to have an incarcerated incisional hernia. DESCRIPTION OF PROCEDURE: The patient was brought to the operating room, laid supine on the table. After adequate IV pain and sedative medications and general endotracheal intubation, abdomen was prepped and draped in standard surgical fashion. A 0.5% Marcaine with epinephrine was used to anesthetize the overlying skin along the medial aspect of the previous Sanchez incision for her cholecystectomy. Along the same scar, a skin incision was made using a 15 blade. Subcutaneous tissue was then dissected using electrocautery. The hernia sac was identified and completely dissected out using blunt dissection as well as electrocautery to the fascial base. The hernia sac was then opened using Metzenbaum scissors. There was only omentum within the hernia sac, there was no strangulation. The hernia sac as well as the omentum was then excised using electrocautery with visualization of good hemostasis. The defect was approximately 2 cm in size and a 6.4 coated polypropylene mesh was placed into the defect and sutured transfascially in an interrupted manner to the mesh using 0 Prolene sutures. Good hemostasis was observed. The subcutaneous tissue was then reapproximated using 3-0 Vicryl interrupted sutures. Skin was closed using 4-0 Monocryl running subcuticular suture. Wound was then cleaned and covered with Dermabond. The area was then covered with tonsil sponges followed by 4 x 4 gauze followed by large Op-Site followed by abdominal binder. The patient tolerated the procedure well. We will start IV normal pain medication as well as a clear liquid diet. Once she is tolerating clears, has good pain control with oral pain medications, ambulating well, we will discharge her home where she will be instructed to do no heavy lifting or exertion for the next two weeks and slowly advance as tolerated; however, continue to refrain from heavy lifting or exertion for a total of 6 weeks from the surgery date. Job ID: [id number] DocumentID: [id number] Dictated Date: 05/08/2021 12:58:43 [employer]icer Repairer [employer] Date: 05/08/2021 19:43:15 Dictated By: CARLOS HARDEN MD
== END 2021-05-08 15:20 ==
LOC: SDC 09:32
PROVIDERS: ATTEND Surgery
DX: K43.6 Other and unspecified ventral hernia with obstruction, without gangrene (principal); K43.0 Incisional hernia with obstruction, without gangrene
CPT/HCPCS: 49561; 49568; 85025; 87081; C1781; 36415